=== PATIENT | female | born 1950 | race Two or more races ===

== ENCOUNTER 2018-01-13 02:30 | Inpatient (IN) | payer MEDICARE, MEDICAID ==
[~2018-01-13] VITALS: Ht 162.6 cm; Wt 53.4 kg
[~2018-01-13 02:30] MED LIST: AMLO10TA2 PO; AMLO5TAB2 PO; ASPI-231 PO; CARV3.1240 PO; CLON0.2T PO; FUR40T PO; FURO40TA4 PO; INSLANTI SC; INSLISPI SC; LEVO500T21 PO; LISI2.5T47 PO; MET50T PO; METO25TA5 PO; OME20T PO; ROPI0.5T PO; SEVE800T PO; SEVE800T8 PO; SIMV-8 PO
[2018-01-13] MEDS ORDERED: cloNIDine HCL 0.1 MG TAB PO ONE (04:00)
[2018-01-13 04:04] LABS: Basophils # (auto) 0.1 uL; Basophils % (auto) 0.5 % (0.0-2.0); Eosinophils # (auto) 0.5 uL; Eosinophils % (auto) 4.1 % (0.0-7.0); Hematocrit 33.8 % (36.0-46.0); Hemoglobin 10.9 g/dL (12.2-16.2); Lymphocytes # (auto) 0.6 uL; Lymphocytes % (auto) 5.1 % (10.0-50.0); Mean Corpuscular Hemoglobin 32.1 pg (28.0-32.0); Mean Corpuscular Hgb Conc. 32.4 g/dL (32.0-36.0); Mean Corpuscular Volume 99.1 fL (80.0-100.0); Monocytes # (auto) 0.5 uL; Monocytes % (auto) 4.5 % (0.0-12.0); Neutrophils # (auto) 9.7 uL; Neutrophils % (auto) 85.8 % (37.0-80.0); Nucleated Red Blood Cells % 0.1 %; Platelet Count (auto) 202 10^3/uL (140-450); Red Blood Cells 3.41 10^6/uL (4.0-5.20); Red Cell Distribution Width 16.9 % (11.8-14.3); White Blood Cell 11.3 10^3/uL (4.4-10.8)
[2018-01-13 04:33] LABS: BUN/Creatinine Ratio 5.7; Bilirubin, Total 0.5 mg/dL (0.2-1.0); Calcium 9.5 mg/dL (8.5-10.1); Magnesium 3.6 mg/dL (1.6-2.6); Total Protein 7.5 g/dL (6.4-8.2)
[2018-01-13] MEDS ORDERED: DEXTROSE (50%) 50ML SYRG IV ONE (05:00)
[2018-01-13] MEDS ORDERED: SODIUM POLYSTYRENE SULF 15GM/60ML SUSP PO ONE (05:00)
[2018-01-13] MEDS ORDERED: InsuLIN REG 1unit/0.01ml Soln (100units/ml) IV ONE (05:00)
[2018-01-13] MEDS ORDERED: SODIUM BICARBONATE 8.4 % INJ 50ML VIAL IV ONE (05:00)
[2018-01-13] MEDS ORDERED: CALCIUM GLUC 4.65meq/50ml D5AE 50 ML IV ONE (05:00)
[2018-01-13] MEDS ORDERED: ENOXAPARIN SOD 60 MG/0.6 ML SYRINGE SC ONE (07:00)
[2018-01-13] MEDS ORDERED: NITROGLYCERIN 0.4 MG SL TAB SL PRN (09:45)
[2018-01-13] MEDS ORDERED: MORPHINE SULFATE 8mg/ml INJ SDV IV PRN (09:45)
[2018-01-13] MEDS ORDERED: CARVEDILOL 3.125 MG TAB PO SCH (10:00)
[2018-01-13] MEDS ORDERED: DEXTROSE (50%) 50ML SYRG IV PRN (10:00)
[2018-01-13] MEDS ORDERED: SODIUM CHL 0.9% 1000 ML BAG XX ONE (10:15)
[2018-01-13] MEDS: ASPirin-EC 81 mg tab PO SCH (10:47)
[2018-01-13] MEDS: METOPROLOL TARTRATE 25 MG TAB PO SCH ×2 (10:47→21:52)
[2018-01-13 10:58] LABS: Calcium 9.2 mg/dL (8.5-10.1)
[2018-01-13 11:06] LABS: Potassium 7.4 mmol/L (3.5-5.1)
[2018-01-13 11:07] LABS: BUN/Creatinine Ratio 5.7
[2018-01-13] MEDS ORDERED: SEVELAMER 800 MG TAB PO SCH (12:00)
[2018-01-13] MEDS: SEVELAMER 800 MG TAB PO SCH ×2 (12:00→18:27)
[2018-01-13] MEDS ORDERED: cloNIDine HCL 0.1 MG TAB PO SCH (12:00)
[2018-01-13] MEDS: ACCU-CHEK COMFORT CURVE STRIP VI SCH ×3 (12:51→22:00)
[2018-01-13] MEDS: InsuLIN REG 1unit/0.01ml Soln (100units/ml) SC SCH ×3 (12:52→22:00)
[2018-01-13] MEDS: NIFEdipine ER 30 MG TAB PO SCH (13:07)
[2018-01-13 20:14] VITALS: BP 191/74
[2018-01-13 22:00] VITALS: BP 165/88
[2018-01-14 05:00] VITALS: BP 192/65
[2018-01-14 06:15] LABS: Basophils # (auto) 0.1 uL; Basophils % (auto) 0.6 % (0.0-2.0); Eosinophils # (auto) 0.4 uL; Hematocrit 27.5 % (36.0-46.0); Hemoglobin 9.1 g/dL (12.2-16.2); Lymphocytes # (auto) 0.6 uL; Lymphocytes % (auto) 7.1 % (10.0-50.0); Mean Corpuscular Hemoglobin 32.7 pg (28.0-32.0); Mean Corpuscular Hgb Conc. 33.1 g/dL (32.0-36.0); Mean Corpuscular Volume 98.6 fL (80.0-100.0); Monocytes # (auto) 0.8 uL; Neutrophils # (auto) 6.7 uL; Neutrophils % (auto) 78.3 % (37.0-80.0); Platelet Count (auto) 166 10^3/uL (140-450); Red Blood Cells 2.78 10^6/uL (4.0-5.20); Red Cell Distribution Width 16.9 % (11.8-14.3); White Blood Cell 8.6 10^3/uL (4.4-10.8)
[2018-01-14 06:24] LABS: BUN/Creatinine Ratio 4.1
[2018-01-14] MEDS: InsuLIN REG 1unit/0.01ml Soln (100units/ml) SC SCH ×4 (06:56→20:42)
[2018-01-14] MEDS: ACCU-CHEK COMFORT CURVE STRIP VI SCH ×4 (06:56→20:42)
[2018-01-14] MEDS: SEVELAMER 800 MG TAB PO SCH ×3 (08:26→17:42)
[2018-01-14] MEDS: METOPROLOL TARTRATE 25 MG TAB PO SCH ×2 (08:26→20:43)
[2018-01-14] MEDS: ASPirin-EC 81 mg tab PO SCH (08:26)
[2018-01-14] MEDS: B-COMPLEX W/ C & FOLIC ACID(NEPHROVITE TAB) PO SCH (08:27)
[2018-01-14] MEDS: NIFEdipine ER 30 MG TAB PO SCH (08:27)
[2018-01-14 08:58] VITALS: BP 197/77
[2018-01-14] MEDS ORDERED: hydrALAZINE HCL 25 MG TAB PO ONE (11:30)
[2018-01-14] MEDS ORDERED: EPOETIN ALFA 10,000 UNIT/1 ML VIAL IV ONE (11:45)
[2018-01-14] MEDS ORDERED: SODIUM CHL 0.9% 1000 ML BAG XX ONE (11:45)
[2018-01-14 12:49] VITALS: BP 188/71
[2018-01-14 16:58] VITALS: BP 160/67
[2018-01-14] MEDS: LABETALOL HCL 5 MG/ML ML 20ML VIAL IV PRN (17:42)
[2018-01-14 22:00] VITALS: BP 143/79
[2018-01-14] MEDS ORDERED: hydrALAZINE HCL 25 MG TAB PO SCH (22:00)
[2018-01-15] MEDS: hydrALAZINE HCL 25 MG TAB PO SCH ×4 (00:15→16:08)
[2018-01-15 05:00] VITALS: BP 207/84
[2018-01-15] MEDS: LABETALOL HCL 5 MG/ML ML 20ML VIAL IV PRN (05:18)
[2018-01-15 06:25] LABS: Basophils # (auto) 0.1 uL; Basophils % (auto) 0.6 % (0.0-2.0); Eosinophils # (auto) 0.4 uL; Eosinophils % (auto) 4.5 % (0.0-7.0); Hematocrit 28.9 % (36.0-46.0); Hemoglobin 9.6 g/dL (12.2-16.2); Lymphocytes # (auto) 0.5 uL; Lymphocytes % (auto) 4.8 % (10.0-50.0); Mean Corpuscular Hemoglobin 32.8 pg (28.0-32.0); Mean Corpuscular Hgb Conc. 33.4 g/dL (32.0-36.0); Mean Corpuscular Volume 98.1 fL (80.0-100.0); Monocytes # (auto) 0.6 uL; Monocytes % (auto) 6.2 % (0.0-12.0); Neutrophils # (auto) 8.1 uL; Neutrophils % (auto) 83.9 % (37.0-80.0); Platelet Count (auto) 177 10^3/uL (140-450); Red Blood Cells 2.94 10^6/uL (4.0-5.20); Red Cell Distribution Width 17.3 % (11.8-14.3); White Blood Cell 9.7 10^3/uL (4.4-10.8)
[2018-01-15 06:44] LABS: Calcium 8.4 mg/dL (8.5-10.1); Potassium 5.1 mmol/L (3.5-5.1)
[2018-01-15 06:46] LABS: BUN/Creatinine Ratio 5.2
[2018-01-15] MEDS: InsuLIN REG 1unit/0.01ml Soln (100units/ml) SC SCH ×4 (06:59→23:00)
[2018-01-15] MEDS: ACCU-CHEK COMFORT CURVE STRIP VI SCH ×4 (06:59→22:00)
[2018-01-15] MEDS: SEVELAMER 800 MG TAB PO SCH ×3 (08:49→16:08)
[2018-01-15] MEDS: ONDANSETRON HCL 4 MG/2 ML VIAL IV PRN (08:49)
[2018-01-15 09:00] VITALS: BP 186/70
[2018-01-15] MEDS: B-COMPLEX W/ C & FOLIC ACID(NEPHROVITE TAB) PO SCH (10:00)
[2018-01-15] MEDS ORDERED: NIFEdipine ER 30 MG TAB PO SCH ×3 (10:00→18:00)
[2018-01-15] MEDS ORDERED: LABETALOL HCL 200 MG TAB PO SCH (10:00)
[2018-01-15] MEDS: ASPirin-EC 81 mg tab PO SCH (10:00)
[2018-01-15] MEDS: ISOSORBIDE MONONITRATE 60 MG TAB PO SCH (10:00)
[2018-01-15 12:00] VITALS: BP 188/85
[2018-01-15 17:00] VITALS: BP 168/69
[2018-01-15 22:00] VITALS: BP 155/70
[2018-01-15] MEDS: LABETALOL HCL 200 MG TAB PO SCH (22:00)
[2018-01-16] MEDS: LABETALOL HCL 200 MG TAB PO SCH ×2 (03:09→09:24)
[2018-01-16 05:27] VITALS: BP 124/57
[2018-01-16 05:43] LABS: Basophils # (auto) 0 uL; Basophils % (auto) 0.7 % (0.0-2.0); Eosinophils # (auto) 0.2 uL; Hematocrit 29.8 % (36.0-46.0); Lymphocytes # (auto) 0.4 uL; Lymphocytes % (auto) 6.6 % (10.0-50.0); Mean Corpuscular Hemoglobin 32.9 pg (28.0-32.0); Mean Corpuscular Hgb Conc. 33.6 g/dL (32.0-36.0); Mean Corpuscular Volume 97.7 fL (80.0-100.0); Monocytes # (auto) 0.6 uL; Monocytes % (auto) 10.1 % (0.0-12.0); Neutrophils # (auto) 4.4 uL; Neutrophils % (auto) 78.6 % (37.0-80.0); Platelet Count (auto) 187 10^3/uL (140-450); Red Blood Cells 3.05 10^6/uL (4.0-5.20); Red Cell Distribution Width 16.3 % (11.8-14.3); White Blood Cell 5.5 10^3/uL (4.4-10.8)
[2018-01-16] MEDS: hydrALAZINE HCL 25 MG TAB PO SCH ×3 (06:00→11:55)
[2018-01-16 06:19] LABS: BUN/Creatinine Ratio 4.8; Calcium 8.9 mg/dL (8.5-10.1); Potassium 5.3 mmol/L (3.5-5.1)
[2018-01-16] MEDS: ACCU-CHEK COMFORT CURVE STRIP VI SCH ×2 (07:00→10:56)
[2018-01-16] MEDS: InsuLIN REG 1unit/0.01ml Soln (100units/ml) SC SCH ×2 (07:00→10:56)
[2018-01-16 09:00] VITALS: BP 164/90
[2018-01-16] MEDS: B-COMPLEX W/ C & FOLIC ACID(NEPHROVITE TAB) PO SCH (09:23)
[2018-01-16] MEDS: SEVELAMER 800 MG TAB PO SCH ×2 (09:23→11:55)
[2018-01-16] MEDS: ISOSORBIDE MONONITRATE 60 MG TAB PO SCH (09:24)
[2018-01-16] MEDS: ASPirin-EC 81 mg tab PO SCH (09:25)
[2018-01-16] MEDS ORDERED: SODIUM CHL 0.9% 1000 ML BAG XX ONE (12:45)
[2018-01-16] MEDS ORDERED: EPOETIN ALFA 10,000 UNIT/1 ML VIAL IV ONE (12:45)
[2018-01-16] MEDS: ONDANSETRON HCL 4 MG/2 ML VIAL IV PRN (13:36)
[2018-01-17] MEDS ORDERED: SODIUM CHL 0.9% 1000 ML BAG XX ONE (09:50)
[2018-01-17] MEDS ORDERED: EPOETIN ALFA 10,000 UNIT/1 ML VIAL IV ONE (09:50)
== END 2018-01-16 13:53 | disposition home or self-care (01) | DRG 291 ==
LOC: ER 02:30 → EDBD 02:30 → TELE 02:31 → TELE-WESTW 22:00
PROVIDERS: ADMIT Nurse Practitioner Family; ATTEND Internal Medicine
PROC: 5A1D70Z Performance of Urinary Filtration, Intermittent, Less than 6 Hours Per Day (ICD-10-PCS; 2018-01-13)
PROC: 5A1D70Z Performance of Urinary Filtration, Intermittent, Less than 6 Hours Per Day (ICD-10-PCS; principal; 2018-01-15)
DX: I13.2 Hypertensive heart and chronic kidney disease with heart failure and with stage 5 chronic kidney disease, or end stage renal disease (principal); N18.6 End stage renal disease; I50.43 Acute on chronic combined systolic (congestive) and diastolic (congestive) heart failure; I16.0 Hypertensive urgency; E87.5 Hyperkalemia; D63.1 Anemia in chronic kidney disease; E11.22 Type 2 diabetes mellitus with diabetic chronic kidney disease; I25.10 Atherosclerotic heart disease of native coronary artery without angina pectoris; I34.0 Nonrheumatic mitral (valve) insufficiency; Z79.4 Long term (current) use of insulin; R74.8 Abnormal levels of other serum enzymes; Z79.899 Other long term (current) drug therapy; Z80.1 Family history of malignant neoplasm of trachea, bronchus and lung; Z80.3 Family history of malignant neoplasm of breast; Z80.41 Family history of malignant neoplasm of ovary; Z80.8 Family history of malignant neoplasm of other organs or systems; Z81.8 Family history of other mental and behavioral disorders; Z82.0 Family history of epilepsy and other diseases of the nervous system; Z82.3 Family history of stroke; Z82.49 Family history of ischemic heart disease and other diseases of the circulatory system; Z82.5 Family history of asthma and other chronic lower respiratory diseases; Z82.62 Family history of osteoporosis; Z83.3 Family history of diabetes mellitus; Z99.2 Dependence on renal dialysis; Z90.49 Acquired absence of other specified parts of digestive tract; Z71.89 Other specified counseling
CPT/HCPCS: 36415; 71045; 80048; 80053; 82962; 83036; 83735; 83880; 84132; 84484; 85025; 90935; 93005; 96365; 96372; 96375; 99291; J0610; J0885; J1642; J1815; J2405

== ENCOUNTER 2019-05-13 05:11 | Emergency (ER) | payer MEDICARE, MEDICAID ==
[~2019-05-13] VITALS: Ht 154.9 cm; Wt 54.4 kg
[2019-05-13 05:11] VITALS: BP 0/0
[~2019-05-13 05:11] MED LIST changes: +AMLO10TA13 PO; -AMLO10TA2 PO; -AMLO5TAB2 PO; -FUR40T PO; -LEVO500T21 PO; -MET50T PO; -ROPI0.5T PO; +ROPI0.5T16 PO
[2019-05-13] MEDS ORDERED: CALCIUM CHLOR(10%) 100MG/ML 10ML SYRINGE IV ONE (05:12)
[2019-05-13] MEDS ORDERED: EPINEPHrine HCL 1 MG/10 ML SYRG IV ONE (05:12)
[2019-05-13] MEDS ORDERED: SODIUM BICARBONATE 8.4% INJ 50ML SYRINGE IV ONE (05:12)
== END 2019-05-13 05:25 | disposition expired ==
LOC: ER 05:11 → EDBD 05:11 → ER 05:25
DX: I46.9 Cardiac arrest, cause unspecified (principal); I12.0 Hypertensive chronic kidney disease with stage 5 chronic kidney disease or end stage renal disease; E11.22 Type 2 diabetes mellitus with diabetic chronic kidney disease; N18.6 End stage renal disease; E78.5 Hyperlipidemia, unspecified; Z79.4 Long term (current) use of insulin; Z79.899 Other long term (current) drug therapy; Z90.49 Acquired absence of other specified parts of digestive tract; Z99.2 Dependence on renal dialysis
CPT/HCPCS: 92950; 99285; J0171